=== PATIENT | female | born 1955 | race Caucasian/White ===

== ENCOUNTER 2020-06-02 08:54 | Inpatient (IN) | payer OTHER ==
[2020-05-27 10:16] LABS: URINE BILIRUBIN NEGATIVE (Negative); URINE BLOOD NEGATIVE (Negative); URINE CLARITY CLEAR; URINE COLOR YELLOW; URINE GLUCOSE-RANDOM* NEGATIVE (Negative); URINE KETONES NEGATIVE (Negative); URINE LEUKOCYTES-REFLEX NEGATIVE (Negative); URINE NITRITE-REFLEX NEGATIVE (Negative); URINE PROTEIN (DIPSTICK) NEGATIVE (Negative); URINE SPECIFIC GRAVITY <= 1.005 (1.005-1.035); URINE UROBILINOGEN 0.2 E.U./dl (0.2-1.0)
[2020-05-27 10:17] LABS: HEMATOCRIT 44.2 % (37.0-47.0); MCH 32.9 pg (26.0-34.0); MCHC 33.9 g/dL (28.0-37.0); RBC 4.56 mil/uL (4.20-5.00); RDW 13.5 % (10.5-14.5); WBC 6.9 thou/uL (4.0-11.0)
--- NOTE | 2020-05-27 10:24 | EKG ---
[facility] [place] [address] ELECTROCARDIOGRAM REPORT Name: EDWINA PRASAD Room #: PRE IN M..#: [id number] Admission: Attend Phys: Partha Calderón MD Discharge: Date of : 51 Report #: [id number] THIS REPORT FOR: cc: Dez Regan MD, Mark D. 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
[2020-05-27 10:27] LABS: ALBUMIN 3.8 g/dL (3.4-5.0); CALCIUM 8.3 mg/dL (8.5-10.1); CREATININE 0.7 mg/dL (0.6-1.0); POTASSIUM 4.2 mmol/L (3.5-5.1)
[2020-05-27 10:28] LABS: PROTIME 10.1 Seconds (9.3-11.4)
[~2020-06-02] VITALS: Ht 162.6 cm; Wt 68.0 kg
[~2020-06-02 08:54] MED LIST: CLONAZEPAM 0.50.5 M1 PO; LEVOXYL125 MCG PO; T3 PO; [UNRECOGNIZED DRUG - OTHER] SUBLING
[2020-07-03 10:48] VITALS: BP 115/80
[2020-07-03 15:15] VITALS: BP 114/72
--- NOTE | 2020-07-03 15:48 | NUR ---
ASSESSMENT: CM REVIEWED CHART AND SPOKE WITH PT AND HER SIGNIFICANT OTHER. PT IS ALERT AND ORIETED X4. PT IS S/P L TKR. PT REPORTS LIVING IN A [place]. PT STATES ABOUT 12 STEPS WITH A HANDRAIL TO ENTER AND ALL HER NEEDS ARE THEN ON THAT MAIN LEVEL. PT REPORTS SHE WAS FULLY INDEPENDENT PRIOR TO ADMISSION AND DOES NOT HAVE ANY DME. CM DISCUSSED POSSIBLE NEED FOR A WALKER AND PT REPORTS NO PREFERENCE OF DME COMPANY. CM NOTIFIED [facility] THAT PT MAY NEED A WALKER PENDING PT EVAL. PT REPORTS SHE ALREADY HAS OUTPATIENT THERAPY ARRANGED FOR TUESDAY AT [facility]. PT IS TO WORK WITH THERAPY. CM WILL CONTINUE TO FOLLOW TO ASSIST NEEDED.
[2020-07-03 17:15] VITALS: BP 121/71
--- NOTE | 2020-07-03 17:53 | NUR ---
PATIENT ADMITTED FROM OR WITH LEFT TOTAL KNEE, BART DRESSING, KNEE HIGH LORIE HOSE, SCD'S, POLAR CARE IN PLACE. RIGHT WRIST IV WITH D51/2NS AT 100CC/HR. PATIENT C/O PAIN WITH LEFT KNEE, MORPHINE 2 MG IV GIVEN, WITH GOOD RELIEF. ADMISSION COMPLETED, ASSUMING CARE OF THIS PATIENT. WILL REPORT TO THE NIGHTSHIFT NURSE. VSS.
[2020-07-03 19:17] VITALS: BP 127/64
[2020-07-04 01:50] VITALS: BP 113/77
--- NOTE | 2020-07-04 03:25 | NUR ---
PT WAS OBSERVED LYING ON THE BED IN THE COMPANY OF HER FAMILY.PT WAS CONCERNED ABOUT HOW TO GET HER MEDS FOR THE NIGHT.PT EDUCATED ON USE THE CALL LIGHT FOR ALL HER NEEDS.UP WITH SBA TO THE BSC,ADEQUATE URINE OUTPUT NOTED. PT WITH HX OF ANXIETY,CLONAZEPAM GIVEN X1 PER PT'S REQUEST.PT CONT ON 2L/NC.PT ENCOURAGED TO USE HER INCENTIVE SPIROMETER WHILE AWAKE.DRSG TO HER L KNEE C/D/I WITH NO S/S OF INFECTION.PT SLEEPING ON HER BED AT THIS TIME.CALL LIGHTY WITHIN REACH.
[2020-07-04 03:40] LABS: HEMATOCRIT 38.4 % (37.0-47.0); HEMOGLOBIN 12.6 gm/dL (12.0-15.0); MCH 32.4 pg (26.0-34.0); MCHC 32.7 g/dL (28.0-37.0); MCV 99.1 fL (80.0-100.0); RBC 3.88 mil/uL (4.20-5.00); RDW 13.5 % (10.5-14.5); WBC 18.1 thou/uL (4.0-11.0)
[2020-07-04 04:53] VITALS: BP 107/69
[2020-07-04 09:51] VITALS: BP 107/69
--- NOTE | 2020-07-04 09:52 | NUR ---
ON-GOING ASSESSMENT: CM REVIEWED CHART AND SPOKE WITH PATIENT WELL PHYSICAL THERAPIST WHO STATES PT IS SAFE FOR HOME AND THEY WORKED ON STEPS. PT IS NEEDING A WALKER FOR HOME. PT HAS NO PREFERENCE OF DME PROVIDER. [employer] WAS NOTIFIED AND CAN SUPPLY HER WITH A WALKER AND ARE DELIVERING IT TO HER ROOM. PT REPORTS HER SIGNIFICANT OTHER CAN PICK HER UP.
--- NOTE | 2020-07-04 12:58 | NUR ---
I have reviewed the documentation by TANJA MAY from 07/04/20 to 07/04/20 and I concur with it. MAGY SOTOMAYOR, PT, DPT
--- NOTE | 2020-07-04 13:33 | NUR ---
PT IS AOX4, VSS, BART DRESSING CDI ON LEFT KNEE, TEDS, SCDS WERE IN PLACE. PT WALKED TWICE IN THE MATOS. PT RECEIVED DISCHARGED INSTRUCTIONS AND VERBALIZED UNDERSTANDING. IV DISCONTINUED. POLAR ICE PACK EMPTIED AND WALKER SENT HOME WITH PATIENT.TRANSFERRED TO CAR WITH PER WHEELCHAIR.
--- NOTE | 2020-07-08 12:39 | O ---
[facility] [place] [address] OPERATIVE REPORT Name: EDWINA PRASAD Room #: 439-P [facility] IN M.R.#: [id number] Admission: 07/03/20 Attend Phys: Partha Calderón MD Discharge: 07/04/20 Date of : 51 Report #: [id number] THIS REPORT FOR: cc: Dez Regan MD, Mark D. MD Abraham,Partha Walker MD ~ CC: Norberto Calderón DATE OF SERVICE: 07/03/2020 PREOPERATIVE DIAGNOSIS: Left knee osteoarthritis. POSTOPERATIVE DIAGNOSIS: Left knee osteoarthritis. PROCEDURE: Left total knee arthroplasty using Navio robotic assistance. SURGEON: Partha Calderón MD. CAREER RESOURCE SPECIALIST: Ciara Beckwith PA-C. INDICATIONS FOR CAREER RESOURCE SPECIALIST: Throughout the case, extensive retraction and manipulation of the knee was required. This was afforded to me by my post production assistant. ANESTHESIA: LMA. IMPLANTS: [employer] size 4 Journey II BCS cobalt chrome femur, size 2 tibia, size 11 constrained polyethylene and size 29 patella. TOURNIQUET TIME: 52 minutes. ESTIMATED BLOOD LOSS: 25 mL. COMPLICATIONS: None. SPECIMENS: None. CONDITION UPON LEAVING THE OPERATING ROOM: Stable. INDICATIONS FOR PROCEDURE: The patient is a 64-year-old female with left knee valgus osteoarthritis. She had failed conservative measures for this and after discussion with her, she elected for left total knee arthroplasty. DESCRIPTION OF PROCEDURE: Risks, benefits, alternatives, complications were discussed in detail with the patient including but not limited to risk of [facility] [address] [place] [address] OPERATIVE REPORT Name: EDWINA PRASAD Room #: 439-P DIS IN M.R.#: [id number] Admission: 07/03/20 Attend Phys: Partha Calderón MD Discharge: 07/04/20 Date of : 51 Report #: [id number] anesthesia, risk of damage to nerves, arteries, blood vessels, risk for infection, bleeding, risk for continued knee pain, need for reoperation. Informed consent was obtained from the patient. Left knee was appropriately marked in the preoperative holding area. IV Ancef was given for preoperative antibiotics. She was brought to the operating room and placed in supine position on operating room table. LMA anesthesia was induced without complication. Tourniquet was placed on the left thigh. Left lower extremity was prepped and draped in normal sterile fashion. Timeout was performed properly identifying the patient and procedure as well as the instrumentation and all in the operating room were in agreement. Left lower extremity was exsanguinated, tourniquet was inflated. Tourniquet time was 52 minutes. Standard midline approach to knee was made with 10 blade through the skin. Dissection was taken down sharply to the fascia and deep flaps were developed medially and laterally. Fresh 10 blade was used to make a medial parapatellar arthrotomy and the knee was inspected. There was severe lateral compartment osteoarthritis with moderate medial and patellofemoral osteoarthritis. ACL and PCL were removed sharply. Reference pins were placed in the femur and the tibia. The knee was then digitally mapped using the [employer] robotic system. Intraoperative plan was made and we sized the size 4 femur with a size 2 tibia and a 10 spacer. After acceptance of the intraoperative plan, distal femoral cut was made with a Navio bur. Distal femoral cutting block was pinned in place and chamfer cuts were made. Attention was turned to the tibia. The menisci removed with Bovie cautery. Tibial resection guide was pinned in place using the Navio for placement and tibial resection was made. Flexion and extension gaps were then checked and found to have good balance laterally in flexion and extension medially. She demonstrated 2-3 mm of medial laxity and it was felt we could make up for this with a constrained implant. After this, tibia was sized, found to be a size 2. A size 2 tibial trial was placed, pinned and punched. A size 4 femoral trial was placed and box cut was made. This was then trialed with a 10 and then a size 11 polyethylene. The size 11 demonstrated 1-1.5 mm of laxity laterally throughout range of motion of the knee. It did demonstrate 4 mm medially and again we felt we could use a constrained implant. 9 mm was resected from the posterior surface of the patella and a size 29 patellar trial button was placed. Knee was taken through range of motion, found to be stable, found to have good patellar tracking. Trial components were removed. Bony ends were thoroughly irrigated with normal saline. A final size 2 tibia, size 4 Journey II BCS cobalt chrome femur and a size 29 patella were cemented in place using standard cementation techniques. While the cement cured, a periarticular injection consisting of morphine, ropivacaine, epinephrine, Toradol was placed around the knee joint capsule. After the cement cured, tourniquet was deflated. Hemostasis was obtained with Bovie cautery. Final size 11 constrained polyethylene was placed. A gram of vancomycin was placed deep in the joint. Fascia was closed with 0 Vicryl, skin was closed with 2-0 Vicryl, 3-0 Monocryl, [address] [address] OPERATIVE REPORT Name: EDWINA PRASAD Room #: 439-P [facility] IN M.R.#: [id number] Admission: 07/03/20 Attend Phys: Partha Calderón MD Discharge: 07/04/20 Date of : 51 Report #: [id number] Dermabond and a BART dressing was applied. The patient tolerated this procedure well and went to recovery room under care of anesthesia postoperatively. <ELECTRONICALLY SIGNED> By: Partha Calderón MD 07/08/20 1239 [id number] 1754 Partha Calderón MD /nt
== END 2020-07-04 13:29 | disposition home or self-care (01) | DRG 470 ==
LOC: PRE 08:54 → 4S 07-03 09:08 → TBA 07-03 09:08 → PRE 07-03 13:08 → 4S 07-03 14:13
PROVIDERS: ADMIT Orthopaedic Surgery; ATTEND Orthopaedic Surgery
PROC: 8E0Y0CZ Robotic Assisted Procedure of Lower Extremity, Open Approach (ICD-10-PCS; principal; 2020-07-03)
PROC: 0SRD0J9 Replacement of Left Knee Joint with Synthetic Substitute, Cemented, Open Approach (ICD-10-PCS; principal; 2020-07-03)
DX: M17.12 Unilateral primary osteoarthritis, left knee (principal); Z88.0 Allergy status to penicillin; Z88.2 Allergy status to sulfonamides; Z79.899 Other long term (current) drug therapy
CPT/HCPCS: 10102; 50010; 50101; 50415; 50954; 51130; 51225; 51320; 52001; 52282; 53000; 53078; 54118; 56527; 56528; 57095; 57103; 57110; 57127; 57179; 57180; 58239; 62110; 62900; 64039; 70005

== ENCOUNTER → 2020-06-27 | Outpatient (CLI) | payer OTHER | LOC: LAB 14:15 | PROVIDERS: ATTEND Student in an Organized Health Care Education/Training Program | DX: Z01.812 Encounter for preprocedural laboratory examination (principal); Z20.828 Contact with and (suspected) exposure to other viral communicable diseases ==